=== PATIENT | male | born 1950 | race Caucasian/White ===

== ENCOUNTER 2016-12-04 08:00 | Outpatient (CLI) | payer OTHER | END 2016-12-04 23:59 | disposition home or self-care (01) | DX: Z12.11 Encounter for screening for malignant neoplasm of colon (principal) ==

== ENCOUNTER 2017-02-10 06:19 | Day surgery (SDC) | payer OTHER ==
[2017-02-10] MEDS ORDERED: LACTATED RINGERS 1,000 ML IV ONE (06:33)
[2017-02-10] MEDS ORDERED: MIDAZOLAM 2 MG/2 ML VIAL IVP ONE (09:40)
[2017-02-10] MEDS ORDERED: fentaNYL 250 MCG/5 ML VIAL IVP ONE (09:40)
== END 2017-02-10 06:20 | disposition home or self-care (01) ==
PROC: 0DB38ZX Excision of Lower Esophagus, Via Natural or Artificial Opening Endoscopic, Diagnostic (ICD-10-PCS; principal; 2017-02-10 07:30)
PROC: 0DJD8ZZ Inspection of Lower Intestinal Tract, Via Natural or Artificial Opening Endoscopic (ICD-10-PCS; 2017-02-10 07:30)
DX: Z12.11 Encounter for screening for malignant neoplasm of colon (principal); K21.9 Gastro-esophageal reflux disease without esophagitis; Z87.891 Personal history of nicotine dependence; Z80.8 Family history of malignant neoplasm of other organs or systems; K44.9 Diaphragmatic hernia without obstruction or gangrene; K20.8 Other esophagitis; K22.2 Esophageal obstruction; K22.70 Barrett's esophagus without dysplasia; K57.30 Diverticulosis of large intestine without perforation or abscess without bleeding; K64.8 Other hemorrhoids
CPT/HCPCS: 43239; 45378; J3010; J7120

== ENCOUNTER 2018-08-25 14:10 | Outpatient (CLI) | payer MEDICARE, OTHER ==
--- NOTE | 2018-08-25 16:02 | Ultrasound Report ---
Reason: SOFT TISSUE MASS Procedure Date: 08/25/2018 Accession Number: [id number] / [id number] Procedure: US - Chest CPT Code: FULL RESULT: EXAM: FOCAL SOFT TISSUE ULTRASOUND IN THE LEFT AXILLARY REGION. EXAM DATE: 08/25/2018 02:44 PM. CLINICAL HISTORY: Soft tissue mass. COMPARISON: None. TECHNIQUE: Soft tissue grayscale, color Doppler and limited spectral Doppler ultrasound images were obtained. FINDINGS: A heterogeneous relatively isoechoic but well-defined superficial lesion measuring 1.6 x 0.7 x 2.0 cm is identified. The lesion demonstrates cystic spaces, scant vascularity by color Doppler and is bluish under the skin surface on physical examination during the ultrasound study. 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 The patient relates that there has been no significant enlargement over time and that he is asymptomatic. In this setting, treatment is not necessary or indicated. Should the patient become symptomatic, IR referral for sclerotherapy could be considered. [facility]
== END 2018-08-25 14:11 | disposition home or self-care (01) ==
LOC: DI 14:10
PROVIDERS: ATTEND Physician Assistant Medical
DX: M79.89 Other specified soft tissue disorders (principal)
CPT/HCPCS: 76604

== ENCOUNTER → 2020-09-28 | Outpatient (CLI) | payer MEDICARE, OTHER ==
[2020-09-28 13:18] LABS: BASOPHILS # (AUTO) 0.1 10^3/uL (0.0-0.1); BASOPHILS % (AUTO) 0.8 %; EOSINOPHILS # (AUTO) 0.2 10^3/uL (0.0-0.7); EOSINOPHILS % (AUTO) 3.2 %; HGB - HEMOGLOBIN 14.3 g/dL (14.0-18.0); LYMPHOCYTES # (AUTO) 1.7 10^3/uL (1.5-3.5); LYMPHOCYTES % (AUTO) 25.5 %; MEAN CORPUSCULAR HEMOGLOBIN 31.4 pg (27.0-31.0); MEAN CORPUSCULAR HGB CONC 32.6 g/dL (32.0-36.0); MEAN CORPUSCULAR VOLUME 96.3 fL (80.0-94.0); MEAN PLATELET VOLUME 10.3 fL (7.4-11.4); MONOCYTES # (AUTO) 0.5 10^3/uL (0.0-1.0); MONOCYTES % (AUTO) 8.3 %; NEUTROPHILS % (AUTO) 61.7 %; PLT - PLATELET COUNT 208 10^3/uL (130-450); RED BLOOD COUNT 4.56 10^6/uL (4.70-6.10); RED CELL DISTRIBUTION WIDTH 12.4 % (12.0-15.0); WHITE BLOOD COUNT 6.5 x10^3/uL (4.8-10.8)
[2020-09-28 14:11] LABS: ALBUMIN 4.1 g/dL (3.2-5.5); ALBUMIN/GLOBULIN RATIO 1.4 (1.0-2.2); ALKALINE PHOSPHATASE 54 IU/L (42-121); ALT ALANINE AMINOTRANSFERASE 25 IU/L (10-60); AST ASPARTATE AMINOTRANSFERASE 19 IU/L (10-42); BILIRUBIN,TOTAL 1.1 mg/dL (0.2-1.0); BUN - BLOOD UREA NITROGEN 23 mg/dL (6-20); CALCIUM 9.2 mg/dL (8.5-10.3); CARBON DIOXIDE - CO2 24 mmol/L (21-32); CHLORIDE 107 mmol/L (101-111); CHOL/HDL RATIO 4.1 (<5.0); CHOLESTEROL 190 mg/dL; GLUCOSE 90 mg/dL (70-100); HDL CHOLESTEROL 46 mg/dL; LDL CHOLESTEROL,CALCULATED 133 mg/dL; LDL/HDL RATIO 2.9 (<3.6); SODIUM 138 mmol/L (135-145); VLDL CHOLESTEROL 11 mg/dL
== END ==
LOC: LAB.WCP 10:24
PROVIDERS: ATTEND Physician Assistant Medical
DX: E78.5 Hyperlipidemia, unspecified (principal); K25.9 Gastric ulcer, unspecified as acute or chronic, without hemorrhage or perforation
CPT/HCPCS: 36415; 80053; 80061; 83721; 85025

== ENCOUNTER 2022-08-19 12:48 | Emergency (ER) | payer MEDICARE, OTHER ==
[2022-08-19] MEDS ORDERED: TETANUS/DIPHTHERIA/PERTUSSIS 0.5 ML SYRINGE IM ONE (15:07)
[2022-08-19] MEDS ORDERED: RABIES IMMUNE GLOBULIN 300 UNITS/2 ML IM STA (15:08)
[2022-08-19] MEDS ORDERED: RABIES VACCINE 2.5 UNIT SYRINGE IM ONE (15:08)
--- NOTE | 2022-08-19 15:27 | ED Physician Documentation ---
PD HPI WOUND RECHECK - Stated complaint Stated Complaint: BAT ENCOUNTER - Chief complaint Chief Complaint: Wound - Histroy obtained from History obtained from: Patient - Additional information Additional information: Patient is a 72-year-old male Presenting for evaluation after exposure to bat yesterday. He was taking down a tent and reached in with a grocery bag to remove what he thought was a mouse.However the animal that he grabbed flew away. He does have a small wound to his right middle finger is unsure of how that occurred. He is unsure of his last tetanus. He has never received the rabies vaccine or immunoglobulin in the past. He denies any current pain. Review of Systems Constitutional: denies: Fever Cardiac: denies: Chest pain / pressure Respiratory: denies: Dyspnea GI: denies: Abdominal Pain Skin: reports: Lesions Musculoskeletal: denies: Extremity pain Neurologic: denies: Headache PD PAST MEDICAL HISTORY - Past Medical History Cardiovascular: None Respiratory: None Endocrine/Autoimmune: None GI: Other : None HEENT: None Psych: None Musculoskeletal: None Derm: Eczema - Past Surgical History General: Colonoscopy, Other - Present Medications Home Medications: Ambulatory Orders Medication Instructions Recorded Confirmed Cetirizine [ZyrTEC] 10 mg PO ONCE 02/10/17 02/10/17 Ibuprofen 200 mg PO ONCE 02/10/17 02/10/17 - Allergies Allergies/Adverse Reactions: Allergies Allergy/AdvReac Type Severity Reaction Status Date / Time No Known Drug Allergies Allergy Verified 08/19/22 13:01 PD ED PE NORMAL - General General: Alert and oriented X 3, No acute distress, Well developed/nourished - HEENT HEENT: Atraumatic - Respiratory Respiratory: No respiratory distress - Derm Derm: Warm and dry - Extremities Extremities: Other (Punctate wound to right middle finger at distal phalanx, Palmar side; Normal range of motion at all joints, brisk cap refill, no erythema or purulence) - Neuro Neuro: Normal speech Results - Vitals Vitals: Vital Signs - 24 hr 08/19/22 08/19/22 12:56 16:46 Temperature 36.3 C L Heart Rate 78 77 Respiratory 16 Rate Blood Pressure 152/73 H 151/63 H O2 Saturation 97 100 Oxygen O2 Source Room air PD MEDICAL DECISION MAKING - ED course ED course: Patient with exposure to bat and wound to his right middle finger. Discussed Risks and benefits of treatment and patient is amenable to receiving rabies immunoglobulin as well as vaccine series. Small amount of immunoglobulin was injected directly at the wound site. He is aware that he needs to return on days 3, 7 and 14 for additional vaccine doses. Wound appears clean. Departure - Departure Disposition: 01 Home, Self Care Clinical Impression: Need for post exposure prophylaxis for rabies Condition: Stable Instructions: Rabies Follow-Up: Kaelyn Adan PA-C [Primary Care Provider] - Comments: You have been evaluated for possible exposure to rabies from contact with the ba edie. Your tetanus has been updated and you have received immunoglobulin for rabies. You have also started the vaccination series for rabies. You will need 3 additional doses to complete the vaccination series and I highly recommend you complete the whole vaccine series. Today is Day 0. You will need a rabies vaccine does on Day 3 (aug 22), Day 7 (Aug 26), and Day 14 (Sep 02). Please call your primary care provider to see if they are able to order this as an outpatient treatment. If you are not able to arrange it through your primary care office then please return to the emergency department on the listed dates to complete the vaccine series. Discharge Date/Time: 08/19/22 16:46
[2022-08-19 16:47] VITALS: BP 151/63
== END 2022-08-19 16:46 | disposition home or self-care (01) ==
LOC: ED 12:48
DX: Z29.14 Encounter for prophylactic rabies immune globulin (principal); Z20.3 Contact with and (suspected) exposure to rabies; Z23 Encounter for immunization; Z71.85 Encounter for immunization safety counseling
CPT/HCPCS: 90471; 90472; 96372; 99282; 99283

== ENCOUNTER 2022-08-22 09:07 | Emergency (ER) | payer MEDICARE, OTHER ==
[2022-08-22 09:17] VITALS: BP 158/85
[2022-08-22] MEDS ORDERED: RABIES VACCINE 2.5 UNIT SYRINGE IM ONE (09:30)
--- NOTE | 2022-08-22 09:30 | ED Physician Documentation ---
History of Present Illness - Stated complaint Stated Complaint: 2ND RAIBES SHOT - Chief complaint Chief Complaint: General - History obtained from History obtained from: Patient - History of Present Illness Quality: he was here 3 days ago for exposure to bat and started rabies vaccine and RIG. Here for 2nd vaccine. He states did not have any allergic reaction symptoms to the first vaccine. Review of Systems Constitutional: denies: Fever, Chills Skin: denies: Rash, Lesions Neurologic: denies: Focal weakness, Numbness, Headache PD PAST MEDICAL HISTORY - Past Medical History Cardiovascular: None Respiratory: None Endocrine/Autoimmune: None GI: Other : None HEENT: None Psych: None Musculoskeletal: None Derm: Eczema - Past Surgical History General: Colonoscopy, Other - Present Medications Home Medications: Ambulatory Orders Medication Instructions Recorded Confirmed Cetirizine [ZyrTEC] 10 mg PO ONCE 02/10/17 02/10/17 Ibuprofen 200 mg PO ONCE 02/10/17 02/10/17 - Allergies Allergies/Adverse Reactions: Allergies Allergy/AdvReac Type Severity Reaction Status Date / Time No Known Drug Allergies Allergy Verified 08/19/22 13:01 PD ED PE NORMAL - Vitals Vital signs reviewed: Yes - General General: Alert and oriented X 3, No acute distress, Well developed/nourished - Derm Derm: Normal color, Warm and dry - Neuro Neuro: Alert and oriented X 3, No motor deficit, Normal speech Results - Vitals Vitals: Vital Signs - 24 hr 08/22/22 09:15 Temperature 36.4 C L Heart Rate 77 Respiratory 16 Rate Blood Pressure 158/85 H O2 Saturation 95 Oxygen O2 Source Room air PD MEDICAL DECISION MAKING - ED course Complexity details: considered differential, d/w patient Departure - Departure Disposition: 01 Home, Self Care Clinical Impression: Need for post exposure prophylaxis for rabies Condition: Stable Record reviewed to determine appropriate education?: Yes Comments: You received the second in the series for rabies vaccine. Follow-up with your primary or return to the ER at the other dates specified on your initial instructions. Discharge Date/Time: 08/22/22 10:14
== END 2022-08-22 10:14 | disposition home or self-care (01) ==
LOC: ED 09:07
DX: Z29.14 Encounter for prophylactic rabies immune globulin (principal)
CPT/HCPCS: 90471

== ENCOUNTER 2022-08-26 09:03 | Emergency (ER) | payer MEDICARE, OTHER ==
[2022-08-26 09:42] VITALS: BP 147/80
[2022-08-26] MEDS ORDERED: RABIES VACCINE 2.5 UNIT SYRINGE IM ONE (10:29)
--- NOTE | 2022-08-26 10:33 | ED Physician Documentation ---
History of Present Illness - Stated complaint Stated Complaint: RABIES SHOT - Chief complaint Chief Complaint: Exposure - History obtained from History obtained from: Patient - Additonal information Additional information: Here for #3/4 rabies shot. No complaints. PD PAST MEDICAL HISTORY - Past Medical History Cardiovascular: None Respiratory: None Endocrine/Autoimmune: None GI: Other : None HEENT: None Psych: None Musculoskeletal: None Derm: Eczema - Past Surgical History General: Colonoscopy, Other - Present Medications Home Medications: Ambulatory Orders Medication Instructions Recorded Confirmed Cetirizine [ZyrTEC] 10 mg PO ONCE 02/10/17 02/10/17 Ibuprofen 200 mg PO ONCE 02/10/17 02/10/17 - Allergies Allergies/Adverse Reactions: Allergies Allergy/AdvReac Type Severity Reaction Status Date / Time No Known Drug Allergies Allergy Verified 08/26/22 09:42 PD ED PE NORMAL - Vitals Vital signs reviewed: Yes - General General: Alert and oriented X 3, No acute distress - Derm Derm: No rash - Neuro Neuro: Alert and oriented X 3, Normal speech Results - Vitals Vitals: Vital Signs - 24 hr 08/26/22 09:40 Temperature 36.5 C Heart Rate 69 Respiratory 14 Rate Blood Pressure 147/80 H O2 Saturation 98 Oxygen O2 Source Room air Departure - Departure Disposition: 01 Home, Self Care Clinical Impression: Need for post exposure prophylaxis for rabies Condition: Good Record reviewed to determine appropriate education?: Yes Instructions: Rabies Vaccine suspension for injection Forms: Rabies Vaccine Series (MAC)
== END 2022-08-26 10:50 | disposition home or self-care (01) ==
LOC: ED 09:03
DX: Z29.14 Encounter for prophylactic rabies immune globulin (principal); Z23 Encounter for immunization; Z71.85 Encounter for immunization safety counseling
CPT/HCPCS: 90471

== ENCOUNTER 2022-09-02 08:59 | Emergency (ER) | payer MEDICARE, OTHER ==
[2022-09-02 09:04] VITALS: BP 152/87
--- NOTE | 2022-09-02 09:22 | ED Physician Documentation ---
History of Present Illness - Stated complaint Stated Complaint: RABIES SHOT - Chief complaint Chief Complaint: General - History obtained from History obtained from: Patient - History of Present Illness Timing: How many weeks ago (2) Quality: The patient is here for his fourth of 4 postexposure rabies vaccines. No problems from the prior injections. PD PAST MEDICAL HISTORY - Past Medical History Cardiovascular: None Respiratory: None Endocrine/Autoimmune: None GI: Other : None HEENT: None Psych: None Musculoskeletal: None Derm: Eczema - Past Surgical History General: Colonoscopy, Other - Present Medications Home Medications: Ambulatory Orders Medication Instructions Recorded Confirmed Cetirizine [ZyrTEC] 10 mg PO ONCE 02/10/17 02/10/17 Ibuprofen 200 mg PO ONCE 02/10/17 02/10/17 - Allergies Allergies/Adverse Reactions: Allergies Allergy/AdvReac Type Severity Reaction Status Date / Time No Known Drug Allergies Allergy Verified 09/02/22 09:04 - Social History Does the pt smoke?: No Smoking Status: Never smoker PD ED PE NORMAL - Vitals Vital signs reviewed: Yes - General General: Alert and oriented X 3, No acute distress, Well developed/nourished Results - Vitals Vitals: Vital Signs - 24 hr 09/02/22 09:03 Temperature 36.2 C L Heart Rate 79 Respiratory 14 Rate Blood Pressure 152/87 H O2 Saturation 98 Oxygen O2 Source Room air Departure - Departure Disposition: 01 Home, Self Care Clinical Impression: Need for post exposure prophylaxis for rabies Condition: Stable Record reviewed to determine appropriate education?: Yes
[2022-09-02] MEDS ORDERED: RABIES VACCINE 2.5 UNIT SYRINGE IM ONE (09:23)
== END 2022-09-02 09:33 | disposition home or self-care (01) ==
LOC: ED 08:59
DX: Z23 Encounter for immunization (principal)
CPT/HCPCS: 90471

== ENCOUNTER 2022-12-17 10:16 | Emergency (ER) | payer MEDICARE, OTHER ==
[2022-12-17 11:03] VITALS: BP 147/90
== END 2022-12-17 12:03 | disposition left against medical advice (07) ==
LOC: ED 10:16
DX: Z53.29 Procedure and treatment not carried out because of patient's decision for other reasons (principal)

== ENCOUNTER 2022-12-20 09:56 | Outpatient (CLI) | payer MEDICARE, OTHER ==
--- NOTE | 2022-12-20 10:50 | XRAY Report ---
PROCEDURE: Lumbar Spine 2 View INDICATIONS: SCIATICA, RIGHT SIDE TECHNIQUE: 3 views of the lumbar spine were acquired. COMPARISON: None. FINDINGS: Bones: There are 5 lumbar-type vertebral bodies. 1.5 cm of L5 on S1 anterolisthesis due to pars defec t. Vertebral body heights are otherwise well-maintained and there is mild overall spondylosis. Soft tissues: Vascular calcifications. Prominent bowel gas and stool. IMPRESSION: Mild overall spondylosis. 1.5 cm of L5 on S1 anterolisthesis due to pars defects. If there is high co ncern for further derangement, consider MRI evaluation. Reviewed by: Christopher Rojo MD on 12/20/2022 10:48 AM PST Approved by: Christopher Rojo MD on 12/20/2022 10:48 AM PST Station ID: [id number]
== END 2022-12-20 09:57 | disposition home or self-care (01) ==
LOC: DI 09:56
PROVIDERS: ATTEND Physician Assistant Medical
DX: M47.816 Spondylosis without myelopathy or radiculopathy, lumbar region (principal); M43.16 Spondylolisthesis, lumbar region

== ENCOUNTER 2023-03-03 17:08 | Outpatient (CLI) | payer MEDICARE, OTHER ==
--- NOTE | 2023-03-04 10:00 | MRI Report ---
PROCEDURE: LUMBAR SPINE WO INDICATIONS: LOW BACK PAIN TECHNIQUE: Noncontrast sagittal T1 spin echo and T2 fast echo, sagittal STIR, axial T1 and T2 fast spin echo thr ough the lumbar spine. In cases with scoliosis, additional coronal T2 fast spin echo may be performe d. COMPARISON: Lumbar spine plain films dated 12/20/2022 FINDINGS: Image quality: Excellent. Alignment and Curvature: Bilateral L5 pars defects. Grade 1 anterolisthesis of L5 on S1 measures 12 m m. Bone Marrow: Marrow is of normal overall signal. No acute vertebral body compression fractures. Spinal Cord: Conus medullaris terminates at the L1 level. Visualized cord demonstrates normal signa l and size. Paraspinous Soft Tissues: No paravertebral masses. T12-L1: Mild disc bulge. No canal stenosis or foraminal stenosis. L1-L2: Annulus tear plus mild disc bulge. No canal stenosis or foraminal stenosis. L2-L3: Disc bulge. Mild facet hypertrophy. Mild canal stenosis. Mild bilateral foraminal stenosis. L3-L4: Mild disc bulge. Mild facet hypertrophy. Borderline canal stenosis. No significant foraminal stenosis. L4-L5: Disc bulge. Mild facet hypertrophy. No significant canal stenosis or foraminal stenosis. L5-S1: Bilateral L5 pars defects. Anterolisthesis of L5 on S1 measuring 12 mm. No central canal [place] nosis. Facet arthropathy. Severe bilateral foraminal narrowing with bilateral foraminal L5 nerve root impingement, left greater than right. IMPRESSION: 1. The most significant findings are identified S1. There are bilateral L5 pars defects, 12 mm sari listhesis of L5 on S1, and severe bilateral foraminal narrowing with bilateral foraminal L5 nerve [place] t impingement. 2. Mild multilevel facet arthropathy. 3. Mild canal stenosis at L2-L3, borderline canal stenosis at L3-L4. Reviewed by: Collin Jon MD on 03/04/2023 9:58 AM PDT Approved by: Collin Jon MD on 03/04/2023 9:58 AM PDT Station ID: [id number]
== END 2023-03-03 17:09 | disposition home or self-care (01) ==
LOC: DI 17:08
PROVIDERS: ATTEND Family Medicine
DX: M51.36 Other intervertebral disc degeneration, lumbar region (principal); M48.061 Spinal stenosis, lumbar region without neurogenic claudication; M47.816 Spondylosis without myelopathy or radiculopathy, lumbar region; M43.17 Spondylolisthesis, lumbosacral region; M47.27 Other spondylosis with radiculopathy, lumbosacral region; M48.07 Spinal stenosis, lumbosacral region